=== PATIENT | male | born 1940 | race Caucasian/White ===

== ENCOUNTER 2020-04-24 08:46 | Outpatient (REF) | payer MEDICARE, SELFPAY ==
[2020-04-24 09:52] LABS: MANUAL DIFF FLAG NO
[2020-04-24 10:24] LABS: Basophils Percent Auto 0.5 % (0-2); Eosinophils Absolute Auto 0.3 X10*3/uL (0.0-0.4); Eosinophils Percent Auto 4.4 % (0-4); Hematocrit 46.6 % (42-52); Hemoglobin 15.6 g/dl (14.0-18.0); Imm Gran Abs Auto 0.04 X10*3/uL (0.00-0.03); Imm Gran Pct Auto 0.5 % (0.0-0.4); Lymphocytes Absolute Auto 2.3 X10*3/uL (1.2-4.9); Lymphocytes Percent Auto 30.5 % (20-40); Mean Corpuscular HGB Conc 33.5 g/dl (31.0-36.0); Mean Corpuscular Hemoglobin 30.5 pg (27.0-33.0); Mean Corpuscular Volume 91.2 fL (80-98); Mean Platelet Volume 9.3 fL (9.4-12.4); Monocytes Absolute Auto 0.7 X10*3/uL (0.1-1.2); Monocytes Percent Auto 8.7 % (2-11); Neutrophils Absolute Auto 4.2 X10*3/uL (2.0-8.3); Neutrophils Percent Auto 55.4 % (45-73); Platelet Count 444 X10*3/uL (160-400); Red Blood Count 5.11 X10*6/uL (4.60-5.80); Red Cell Distribution Width 13.3 % (11.0-16.0); White Blood Count 7.6 X10*3/uL (4.8-10.8)
[2020-04-24 10:27] LABS: Alanine Aminotransferase 13 U/L (0-40); Albumin Level 4.4 g/dL (3.5-5.0); Alkaline Phosphatase 57 U/L (39-117); Anion Gap 11 (12-20); Aspartate Amino Transferase 15 U/L (5-37); Bilirubin Total 0.6 mg/dL (0.0-1.0); Blood Urea Nitrogen 15 mg/dL (9-16); Calcium 8.8 mg/dL (8.4-10.2); Carbon Dioxide 31 mmol/L (22-29); Chloride 103 mmol/L (96-108); Estimated Glomerular Filt Rate > 60; Glucose Random 112 mg/dL (60-115); Potassium 5.1 mmol/l (3.3-5.1); Sodium 140 mmol/L (135-145); Total Protein 7.3 g/dL (6.5-8.0)
[2020-04-24 10:29] LABS: Glucose Urine UA NEG (NEG); Leukocyte Esterase Urine NEG (NEG); Nitrite Urine NEG (NEG); PH 5.5 (5.0-8.0); Specific Gravity - Urine >= 1.030 (1.005-1.025); Urine Blood NEG (NEG); Urine Ketones NEG (NEG); Urine Protein NEG (NEG-TRACE)
[2020-04-24 10:32] LABS: Estimated Average Glucose 123 mg/dL; Hemoglobin A1c % 5.9 %
[2020-04-24 10:34] LABS: Appearance Urine CLEAR; Color Urine YELLOW
[2020-04-24 10:50] LABS: Prostate Specific Antigen 7.43 ng/mL (<0.05-4.0)
[2020-04-24 10:51] LABS: Creatinine Urine 143.37 mg/dL; Microalbum/Creatinine Ratio Ur 4.8 ug/mg cr
== END 2020-04-24 08:47 | disposition home or self-care (01) ==
LOC: HO.LAB 08:46
PROVIDERS: PCP Internal Medicine; Visit Provider Internal Medicine
DX: R73.09 Other abnormal glucose (principal); I10 Essential (primary) hypertension; D64.9 Anemia, unspecified; Z87.448 Personal history of other diseases of urinary system; R97.20 Elevated prostate specific antigen [PSA]
CPT/HCPCS: 36415; 80053; 81003; 82043; 83036; 84153; 85025

== ENCOUNTER 2020-10-29 10:30 | Outpatient (REF) | payer MEDICARE, SELFPAY ==
[2020-10-29 11:25] LABS: Estimated Average Glucose 117 mg/dL; Hemoglobin A1c % 5.7 %
[2020-10-29 11:53] LABS: Alanine Aminotransferase 9 U/L (0-40); Albumin Level 4.3 g/dL (3.5-5.0); Alkaline Phosphatase 54 U/L (39-117); Aspartate Amino Transferase 18 U/L (5-37); Bilirubin Direct 0.3 mg/dL (0.0-0.5); Bilirubin Total 0.7 mg/dL (0.0-1.0); Cholesterol 123 mg/dL; Glucose Fasting 115 mg/dL (60-99); HDL Cholesterol 38 mg/dL; LDL Cholesterol Calculated 68 mg/dl; Total Protein 7.3 g/dL (6.5-8.0); Triglycerides 85 mg/dL
[2020-10-29 13:41] LABS: Reflex LDLD? No
== END 2020-10-29 10:31 | disposition home or self-care (01) ==
LOC: HO.LNP 10:30
PROVIDERS: PCP Internal Medicine; Visit Provider Internal Medicine
DX: R73.03 Prediabetes (principal); I70.0 Atherosclerosis of aorta
CPT/HCPCS: 80061; 80076; 82947; 83036

== ENCOUNTER 2021-02-18 09:54 | Outpatient (REF) | payer MEDICARE, SELFPAY | END 2021-02-18 09:55 | disposition home or self-care (01) | LOC: HO.LAB 09:54 | PROVIDERS: PCP Internal Medicine; Visit Provider Internal Medicine | DX: Z20.822 Contact with and (suspected) exposure to COVID-19 (principal) | CPT/HCPCS: C9803; U0003; U0005 ==

== ENCOUNTER 2021-04-29 10:23 | Outpatient (REF) | payer MEDICARE, SELFPAY ==
[2021-04-29 10:26] LABS: MANUAL DIFF FLAG NO
[2021-04-29 10:38] LABS: Basophils Absolute Auto 0.1 X10*3/uL (0.0-0.2); Basophils Percent Auto 0.6 % (0-2); Eosinophils Absolute Auto 0.4 X10*3/uL (0.0-0.4); Eosinophils Percent Auto 4.5 % (0-4); Hematocrit 45.8 % (42-52); Hemoglobin 15.3 g/dl (14.0-18.0); Imm Gran Abs Auto 0.03 X10*3/uL (0.00-0.03); Imm Gran Pct Auto 0.3 % (0.0-0.4); Lymphocytes Absolute Auto 2.7 X10*3/uL (1.2-4.9); Lymphocytes Percent Auto 30.9 % (20-40); Mean Corpuscular HGB Conc 33.4 g/dl (31.0-36.0); Mean Corpuscular Volume 92.7 fL (80-98); Mean Platelet Volume 9.4 fL (9.4-12.4); Monocytes Absolute Auto 0.8 X10*3/uL (0.1-1.2); Monocytes Percent Auto 9.2 % (2-11); Neutrophils Absolute Auto 4.8 X10*3/uL (2.0-8.3); Neutrophils Percent Auto 54.5 % (45-73); Platelet Count 431 X10*3/uL (160-400); Red Blood Count 4.94 X10*6/uL (4.60-5.80); Red Cell Distribution Width 13.5 % (11.0-16.0); White Blood Count 8.9 X10*3/uL (4.8-10.8)
[2021-04-29 10:48] LABS: Alanine Aminotransferase 13 U/L (0-40); Albumin Level 4.3 g/dL (3.5-5.0); Alkaline Phosphatase 53 U/L (39-117); Anion Gap 11 (12-20); Aspartate Amino Transferase 15 U/L (5-37); Bilirubin Total 0.5 mg/dL (0.0-1.0); Blood Urea Nitrogen 17 mg/dL (9-16); Calcium 9.2 mg/dL (8.4-10.2); Carbon Dioxide 29 mmol/L (22-29); Chloride 104 mmol/L (96-108); Cholesterol 116 mg/dL; Estimated Glomerular Filt Rate > 60; Glucose Fasting 119 mg/dL (60-99); HDL Cholesterol 34 mg/dL; LDL Cholesterol Calculated 60 mg/dl; Potassium 4.6 mmol/L (3.3-5.1); Sodium 139 mmol/L (135-145); Total Protein 7.2 g/dL (6.5-8.0); Triglycerides 113 mg/dL
[2021-04-29 10:52] LABS: Estimated Average Glucose 134 mg/dL; Hemoglobin A1c % 6.3 %
[2021-04-29 11:00] LABS: Appearance Urine CLEAR; Color Urine YELLOW; Glucose Urine UA NEG (NEG); Leukocyte Esterase Urine NEG (NEG); Nitrite Urine NEG (NEG); Specific Gravity - Urine 1.025 (1.005-1.025); Urine Blood NEG (NEG); Urine Ketones NEG (NEG); Urine Protein NEG (NEG-TRACE)
[2021-04-29 11:11] LABS: PSA,Total (Free>4and<10) 8.07 ng/mL (0.00-4.00)
[2021-04-29 11:25] LABS: Creatinine Urine 110.21 mg/dL; Microalbum/Creatinine Ratio Ur 5.4 ug/mg cr
[2021-04-29 12:04] LABS: Reflex LDLD? No
[2021-04-30 10:26] LABS: Free Prostate Spec Ag 1.5 ng/mL; Percent Free Prostate Spec Ag 24 % (calc) (>25); Prostate Specific Ag Total 6.3 ng/mL (< OR = 4.0)
== END 2021-04-29 10:24 | disposition home or self-care (01) ==
LOC: HO.LNP 10:23
PROVIDERS: Visit Provider Internal Medicine
DX: Z00.00 Encounter for general adult medical examination without abnormal findings (principal); I10 Essential (primary) hypertension; D64.9 Anemia, unspecified; R73.9 Hyperglycemia, unspecified; R97.20 Elevated prostate specific antigen [PSA]
CPT/HCPCS: 80053; 80061; 81003; 82043; 83036; 84153; 84154; 85025

== ENCOUNTER 2021-10-31 11:14 | Outpatient (REF) | payer MEDICARE, SELFPAY ==
[2021-10-31 12:30] LABS: Estimated Average Glucose 137 mg/dL; Hemoglobin A1c % 6.4 %
[2021-10-31 12:31] LABS: Alanine Aminotransferase 12 U/L (0-40); Albumin Level 4.2 g/dL (3.5-5.0); Alkaline Phosphatase 62 U/L (39-117); Aspartate Amino Transferase 14 U/L (5-37); Bilirubin Direct 0.3 mg/dL (0.0-0.5); Bilirubin Total 0.6 mg/dL (0.0-1.0); Cholesterol 119 mg/dL; Glucose Fasting 133 mg/dL (60-99); HDL Cholesterol 34 mg/dL; LDL Cholesterol Calculated 68 mg/dl; Total Protein 7.4 g/dL (6.5-8.0); Triglycerides 86 mg/dL
[2021-10-31 16:09] LABS: Reflex LDLD? No
== END 2021-10-31 11:15 | disposition home or self-care (01) ==
LOC: HO.LNP 11:14
PROVIDERS: Visit Provider Internal Medicine
DX: R73.03 Prediabetes (principal); I70.0 Atherosclerosis of aorta
CPT/HCPCS: 80061; 80076; 82947; 83036

== ENCOUNTER 2022-05-02 10:42 | Outpatient (REF) | payer MEDICARE, SELFPAY ==
[2022-05-02 10:47] LABS: MANUAL DIFF FLAG NO
[2022-05-02 11:49] LABS: Basophils Absolute Auto 0.1 X10*3/uL (0.0-0.2); Basophils Percent Auto 0.8 % (0-2); Eosinophils Absolute Auto 0.3 X10*3/uL (0.0-0.4); Eosinophils Percent Auto 3.3 % (0-4); Hematocrit 46.6 % (42.0-52.0); Hemoglobin 15.2 g/dl (14.0-18.0); Imm Gran Abs Auto 0.05 X10*3/uL (0.00-0.03); Imm Gran Pct Auto 0.6 % (0.0-0.4); Lymphocytes Absolute Auto 2.7 X10*3/uL (1.2-4.9); Mean Corpuscular HGB Conc 32.6 g/dl (31.0-36.0); Mean Corpuscular Hemoglobin 29.8 pg (27.0-33.0); Mean Corpuscular Volume 91.4 fL (80.0-98.0); Mean Platelet Volume 9.2 fL (9.4-12.4); Monocytes Absolute Auto 0.8 X10*3/uL (0.1-1.2); Monocytes Percent Auto 9.4 % (2-11); Neutrophils Absolute Auto 4.8 x10*3/uL (2.0-8.3); Neutrophils Percent Auto 54.9 % (45-73); Platelet Count 438 X10*3/uL (160-400); Red Cell Distribution Width 13.5 % (11.0-16.0); White Blood Count 8.8 X10*3/uL (4.8-10.8)
[2022-05-02 11:55] LABS: Appearance Urine Clear; Color Urine Yellow; Glucose Urine UA Negative (Negative); Leukocyte Esterase Urine Negative (Negative); Nitrite Urine Negative (Negative); PH 5.5 (5.0-9.0); Specific Gravity - Urine 1.015 (1.005-1.025); Urine Blood Negative (Negative); Urine Ketones Negative (Negative); Urine Protein Negative (Neg-Trace)
[2022-05-02 12:01] LABS: Bacteria Urine None Seen (None Seen); Hyaline Casts Urine 0-2 /LPF (0-2); RBC Urine 0-2 /HPF (0-2); Squamous Epithelial Cell Urine 0-2 /HPF (0-2); WBC Urine 0-5 /HPF (0-5)
[2022-05-02 12:08] LABS: Estimated Average Glucose 140 mg/dL; Hemoglobin A1c % 6.5 %
[2022-05-02 12:14] LABS: Alanine Aminotransferase 12 U/L (0-40); Albumin Level 4.4 g/dL (3.5-5.0); Alkaline Phosphatase 54 U/L (39-117); Anion Gap 15 (12-20); Aspartate Amino Transferase 16 U/L (5-37); Bilirubin Total 0.6 mg/dL (0.0-1.0); Blood Urea Nitrogen 18 mg/dL (9-16); Calcium 9.1 mg/dL (8.4-10.2); Carbon Dioxide 26 mmol/L (22-29); Chloride 102 mmol/L (96-108); Estimated Glomerular Filt Rate > 60; Glucose Fasting 122 mg/dL (60-99); Potassium 4.6 mmol/L (3.3-5.1); Sodium 138 mmol/L (135-145); Total Protein 7.4 g/dL (6.5-8.0)
[2022-05-02 12:21] LABS: PSA,Total (Free>4and<10) 10.76 ng/mL (0.00-4.00)
[2022-05-02 12:39] LABS: Creatinine Urine 107.61 mg/dL; Microalbum/Creatinine Ratio Ur 8.3 ug/mg cr
== END 2022-05-02 10:43 | disposition home or self-care (01) ==
LOC: HO.LNP 10:42
PROVIDERS: Visit Provider Internal Medicine
DX: Z00.00 Encounter for general adult medical examination without abnormal findings (principal); Z12.5 Encounter for screening for malignant neoplasm of prostate; I10 Essential (primary) hypertension; D64.9 Anemia, unspecified; R73.03 Prediabetes; R97.20 Elevated prostate specific antigen [PSA]
CPT/HCPCS: 80053; 81001; 82043; 83036; 84153; 85025

== ENCOUNTER 2022-08-08 10:51 | Outpatient (REF) | payer MEDICARE, SELFPAY ==
[2022-08-08 12:16] LABS: PSA,Total (Free>4and<10) 17.01 ng/mL (0.00-4.00)
== END 2022-08-08 10:52 | disposition home or self-care (01) ==
LOC: HO.LNP 10:51
PROVIDERS: Visit Provider Internal Medicine
DX: R97.20 Elevated prostate specific antigen [PSA] (principal); Z12.5 Encounter for screening for malignant neoplasm of prostate
CPT/HCPCS: 84153

== ENCOUNTER 2023-05-05 10:53 | Outpatient (REF) | payer MEDICARE, SELFPAY ==
[2023-05-05 11:10] LABS: MANUAL DIFF FLAG NO
[2023-05-05 11:39] LABS: Basophils Absolute Auto 0.1 X10*3/uL (0.0-0.2); Basophils Percent Auto 0.9 % (0-2); Eosinophils Absolute Auto 0.3 X10*3/uL (0.0-0.4); Eosinophils Percent Auto 4.2 % (0-4); Hematocrit 45.7 % (42.0-52.0); Hemoglobin 15.3 g/dl (14.0-18.0); Imm Gran Abs Auto 0.04 X10*3/uL (0.00-0.03); Imm Gran Pct Auto 0.5 % (0.0-0.4); Lymphocytes Absolute Auto 2.4 X10*3/uL (1.2-4.9); Lymphocytes Percent Auto 30.3 % (20-40); Mean Corpuscular HGB Conc 33.5 g/dl (31.0-36.0); Mean Corpuscular Hemoglobin 31.1 pg (27.0-33.0); Mean Corpuscular Volume 92.9 fL (80.0-98.0); Mean Platelet Volume 9.6 fL (9.4-12.4); Monocytes Absolute Auto 0.7 X10*3/uL (0.1-1.2); Monocytes Percent Auto 9.2 % (2-11); Neutrophils Absolute Auto 4.4 x10*3/uL (2.0-8.3); Neutrophils Percent Auto 54.9 % (45-73); Platelet Count 447 X10*3/uL (160-400); Red Blood Count 4.92 X10*6/uL (4.60-5.80); Red Cell Distribution Width 13.7 % (11.0-16.0); White Blood Count 7.9 X10*3/uL (4.8-10.8)
[2023-05-05 11:47] LABS: Appearance Urine Clear; Color Urine Yellow; Glucose Urine UA Negative (Negative); Leukocyte Esterase Urine Small (1+) (Negative); Nitrite Urine Negative (Negative); PH 5.5 (5.0-9.0); UMIC TRIGGER UACC YES; Urine Blood Negative (Negative); Urine Ketones Negative (Negative); Urine Protein Negative (Neg-Trace)
[2023-05-05 12:02] LABS: Alanine Aminotransferase 13 U/L (0-40); Albumin Level 4.2 g/dL (3.5-5.0); Alkaline Phosphatase 50 U/L (39-117); Anion Gap 12 (12-20); Aspartate Amino Transferase 16 U/L (5-37); Bilirubin Total 0.4 mg/dL (0.0-1.0); Blood Urea Nitrogen 18 mg/dL (9-16); Calcium 9.7 mg/dL (8.4-10.2); Carbon Dioxide 27 mmol/L (22-29); Chloride 105 mmol/L (96-108); Cholesterol 97 mg/dL (<200); Estimated Glomerular Filt Rate > 60; Glucose Fasting 159 mg/dL (60-99); HDL Cholesterol 34 mg/dL (>40); LDL Cholesterol Calculated 45 mg/dL (<100); Potassium 4.3 mmol/L (3.3-5.1); Sodium 140 mmol/L (135-145); Total Protein 7.4 g/dL (6.5-8.0); Triglycerides 92 mg/dL (<150)
[2023-05-05 12:06] LABS: Bacteria Urine None Seen (None Seen); Hyaline Casts Urine 0-2 /LPF (0-2); RBC Urine 0-2 /HPF (0-2); Squamous Epithelial Cell Urine 0-2 /HPF (0-2); UACC Culture Trigger YES; WBC Urine 0-5 /HPF (0-5)
[2023-05-05 12:22] LABS: Prostate Specific Antigen 6.48 ng/mL (<0.05-4.0)
== END 2023-05-05 10:54 | disposition home or self-care (01) ==
LOC: HO.LNP 10:53
PROVIDERS: Visit Provider Internal Medicine
DX: Z00.00 Encounter for general adult medical examination without abnormal findings (principal); I10 Essential (primary) hypertension; D64.9 Anemia, unspecified; R97.20 Elevated prostate specific antigen [PSA]; R82.90 Unspecified abnormal findings in urine; Z12.5 Encounter for screening for malignant neoplasm of prostate
CPT/HCPCS: 80053; 80061; 81001; 84153; 85025; 87086

== ENCOUNTER 2023-11-05 10:44 | Outpatient (REF) | payer MEDICARE, SELFPAY ==
[2023-11-05 11:09] LABS: Estimated Average Glucose 154 mg/dL
[2023-11-05 12:02] LABS: Alanine Aminotransferase 14 U/L (0-40); Albumin Level 4.3 g/dL (3.5-5.0); Alkaline Phosphatase 45 U/L (39-117); Aspartate Amino Transferase 18 U/L (5-37); Bilirubin Direct 0.3 mg/dL (0.0-0.5); Bilirubin Total 0.9 mg/dL (0.0-1.0); Cholesterol 108 mg/dL (<200); Glucose Fasting 134 mg/dL (60-99); HDL Cholesterol 39 mg/dL (>40); LDL Cholesterol Calculated 51 mg/dL (<100); Total Protein 7.4 g/dL (6.5-8.0); Triglycerides 94 mg/dL (<150)
[2023-11-05 12:20] LABS: Reflex LDLD? No
== END 2023-11-05 10:45 | disposition home or self-care (01) ==
LOC: HO.LNP 10:44
PROVIDERS: Visit Provider Internal Medicine
DX: R73.03 Prediabetes (principal); I70.0 Atherosclerosis of aorta
CPT/HCPCS: 80061; 80076; 82947; 83036

== ENCOUNTER 2024-05-12 11:33 | Outpatient (REF) | payer MEDICARE, SELFPAY ==
[2024-05-12 11:37] LABS: MANUAL DIFF FLAG NO
[2024-05-12 12:11] LABS: Basophils Absolute Auto 0.1 X10*3/uL (0.0-0.2); Basophils Percent Auto 0.9 % (0-2); Eosinophils Absolute Auto 0.3 X10*3/uL (0.0-0.4); Eosinophils Percent Auto 4.2 % (0-4); Hematocrit 44.2 % (42.0-52.0); Hemoglobin 14.7 g/dl (14.0-18.0); Imm Gran Abs Auto 0.04 X10*3/uL (0.00-0.03); Imm Gran Pct Auto 0.5 % (0.0-0.4); Lymphocytes Absolute Auto 2.2 X10*3/uL (1.2-4.9); Lymphocytes Percent Auto 27.2 % (20-40); Mean Corpuscular HGB Conc 33.3 g/dl (31.0-36.0); Mean Corpuscular Hemoglobin 30.9 pg (27.0-33.0); Mean Corpuscular Volume 93.1 fL (80.0-98.0); Mean Platelet Volume 9.1 fL (9.4-12.4); Monocytes Absolute Auto 0.7 X10*3/uL (0.1-1.2); Monocytes Percent Auto 8.8 % (2-11); Neutrophils Absolute Auto 4.8 x10*3/uL (2.0-8.3); Neutrophils Percent Auto 58.4 % (45-73); Platelet Count 482 X10*3/uL (160-400); Red Blood Count 4.75 X10*6/uL (4.60-5.80); Red Cell Distribution Width 13.5 % (11.0-16.0); White Blood Count 8.2 X10*3/uL (4.8-10.8)
[2024-05-12 12:12] LABS: Appearance Urine Clear; Color Urine Yellow; Glucose Urine UA Negative (Negative); Leukocyte Esterase Urine Trace (Negative); Nitrite Urine Negative (Negative); PH 5.5 (5.0-9.0); Specific Gravity - Urine 1.015 (1.005-1.025); UMIC TRIGGER UACC YES; Urine Blood Negative (Negative); Urine Ketones Negative (Negative); Urine Protein Negative (Neg-Trace)
[2024-05-12 12:17] LABS: Bacteria Urine None Seen (None Seen); Hyaline Casts Urine 0-2 /LPF (0-2); RBC Urine 0-2 /HPF (0-2); Squamous Epithelial Cell Urine 0-2 /HPF (0-2); WBC Urine 0-5 /HPF (0-5)
[2024-05-12 12:23] LABS: Estimated Average Glucose 151 mg/dL; Hemoglobin A1C 204.3044 umol/L; Hemoglobin A1c % 6.9 % (<6.0); Total Hemoglobin (HGBA1C) 3928.0183 umol/L
[2024-05-12 12:28] LABS: Alanine Aminotransferase 15 U/L (0-40); Albumin Level 4.1 g/dL (3.5-5.0); Alkaline Phosphatase 46 U/L (39-117); Anion Gap 10 (12-20); Aspartate Amino Transferase 20 U/L (5-37); Bilirubin Total 0.6 mg/dL (0.0-1.0); Blood Urea Nitrogen 19 mg/dL (9-16); Calcium 9.2 mg/dL (8.4-10.2); Carbon Dioxide 27 mmol/L (22-29); Chloride 106 mmol/L (96-108); Cholesterol 116 mg/dL (<200); Estimated Glomerular Filt Rate > 60; Glucose Fasting 165 mg/dL (60-99); HDL Cholesterol 42 mg/dL (>40); LDL Cholesterol Calculated 60 mg/dL (<100); Potassium 4.3 mmol/L (3.3-5.1); Sodium 139 mmol/L (135-145); Total Protein 7.1 g/dL (6.5-8.0); Triglycerides 71 mg/dL (<150)
[2024-05-12 12:44] LABS: Creatinine Urine 84.07 mg/dL
[2024-05-13 12:58] LABS: Free Prostate Spec Ag 1.6 ng/mL; Percent Free Prostate Spec Ag 32 % (calc) (>25)
== END 2024-05-12 11:34 | disposition home or self-care (01) ==
LOC: HO.LNP 11:33
PROVIDERS: Visit Provider Internal Medicine
DX: Z00.00 Encounter for general adult medical examination without abnormal findings (principal); I10 Essential (primary) hypertension; D64.9 Anemia, unspecified; R97.20 Elevated prostate specific antigen [PSA]; E11.9 Type 2 diabetes mellitus without complications; Z12.5 Encounter for screening for malignant neoplasm of prostate
CPT/HCPCS: 80053; 80061; 81001; 82043; 82570; 83036; 84153; 84154; 85025

== ENCOUNTER 2024-11-14 11:52 | Outpatient (REF) | payer MEDICARE, SELFPAY ==
--- OUTSIDE RECORDS SUMMARY | 2024-11-14 12:33 | XMS_ITS ---
Author Organization Mauricio Zazueta MD Address [address] [place] [id number] Care Team Providers Care [facility] Director Name Role Phone Mauricio Zazueta Primary Care Provider Allergies No Known Allergies Results Component Value Reference Range Notes Occult Blood, Stool, Guaiac Reviewed date:05/19/2024 01:54:49 PM Interpretation:Negative Performing Lab: Notes/Report: Negative Occult Blood, Stool, Guaiac Neg REASON FOR VISIT annual visit Medications Medication SIG (Take, Route, Frequency, Duration) Notes Start Date End Date Status Diflucan 150 MG 1 tablet Orally lucy y for 7 days 02/10/2023 Not-Taking Ketoconazole 2 % 1 application Externally Once a day for 30 days 02/10/2023 Active Flonase Allergy Relief 50 MCG/ACT 1 spray in each nostril Nasally Once a day for 30 day(s) Not-Taking Atorvastatin Calcium 20 MG TAKE 1 TABLET BY MOUTH EVERY DAY Active Lisinopril-hydroCHLOROthi azide 20-12.5 MG TAKE 1 TABLET BY MOUTH EVERY DAY FOR 30 DAYS Active Flonase Allergy Relief 50 MCG/ACT 1 spray in each nostril Nasally Once a day Not-Taking LORazepam 0.5 MG 1 tablet at bedtime as needed Orally Once a day or twice a day for 30 days 08/14/2022 Not-Taking Albuterol Sulfate HFA 108 (90 Base) MCG/ACT INHALE 1 PUFF INTO THE LUNGS EVERY 4 HOURS NEEDED Active Social History Tobacco Use: Social History Observation Description Date Details (start date - stop date) Former Smoker NA - NA Tobacco Use/Smoking Question Answer Notes Patient is a former smoker How long has it been since y ou last smoked? > 10 years Additional Findings: Tobacco Non-User Fo rmer smoker, currently using no form of tobacco Alcohol Screen Question Answer Notes Did you have a drink containing alcohol in the p ast year? 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 ; Encounter for general adult medical examination without abnormal findings Z00.00 ; Benign essential hypertension I10 ; Elevated PSA R97.20 ; Type 2 diabetes mellitus treated without insulin E11.9 ; Mild intermittent asthma without complication J45.20 ; Atherosclerosis of abdominal aorta I70.0 ; Colon cancer screening Z12.11 and Depression screening Z13.31 Assessments Encounter Date Diagnosis (ICD Code) Assessment Notes Treatment Notes Treatment Clinical Notes Section Notes 05/19/2024 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 need notes/ RECORDS REQUESTED FROM [facility] 05/19/2024 Encounter for general adult medical examination without abnormal findings (ICD-10 - Z00.00) Labs reviewed and discussed with patient 05/19/2024 Benign essential hypertension (ICD-10 - I10) stable, will continue current regiment 05/19/2024 Elevated PSA (ICD-10 - R97.20) is stable had been up to 17 is followed by [facility] 05/19/2024 Type 2 diabetes mellitus treated without insulin (ICD-10 - E11.9) stable, will continue to monitor, no need for medication at this time 05/19/2024 Mild intermittent asthma without complication (ICD-10 - J45.20) stable, will continue current regiment 05/19/2024 Atherosclerosis of abdominal aorta (ICD-10 - I70.0) stable, will continue current regiment 05/19/2024 Colon cancer screening (ICD-10 - Z12.11) guaiac negative 05/19/2024 Depression screening (ICD-10 - Z13.31) negative screen Plan Of Treatment Medication Medication Name Sig Start Date Stop Date Notes Atorvastatin Calcium 20 MG TAKE 1 TABLET BY MOUTH EVERY DAY Lisinopril-hydroCHLOROthiazi de 20-12.5 MG TAKE 1 TABLET BY MOUTH EVERY DAY FOR 30 DAYS Albuterol Sulfate HFA 108 (9 0 Base) MCG/ACT INHALE 1 PUFF INTO THE LUNGS EVERY 4 HOURS NEEDED Treatment Notes Assessment Notes Cancer of lip had surgery last wee k at [facility]. need notes/ RECORDS REQUESTED [facility] [place] [facility] Encounter for general adult medical examination without abnormal findings Labs reviewed and discussed with patient Benign essential hypertension stable, wi ll continue current regiment Elevated PSA is stable had been u p to 17 is followed by [facility] Type 2 diabetes mellitus paulette ated without insulin stable, will continue to monitor, no need for medication at this time Mild intermittent asthma without complic ation stable, will continue current regiment Atherosclerosis of abdominal aorta stabl e, will continue current regiment Colon cancer screening guaiac negative Depression screening negative screen Next Appt Details Follow Up: 6 Months, Reason: Provider Name:Mauricio shannon, 11/21/2024 09:00:00 AM, [address] [place] [address], [address], [phone], Provider Name:Mauricio shannon, 05/15/2025 08:00:00 AM, [address] [place] [address], [address] [place] [address], [phone], Provider Name:Mauricio shannon, 05/22/2025 10:30:00 AM, [address] [place] [address], [address] [place] [address], [phone], Progress Notes * Joe REECE ADOB:1939 (84 yo M)Acc No.[id number]:05/19/2024 Progress Notes Patient:?Joe Reece Provider:?Mauricio Zazueta MD :1940???Age:84 Y???Sex:Male Frantz e:05/19/2024 Address:[address] [place], [place] [address], [phone] Subjective: * Chief Complaints: * ???Annual visit * HPI: ???Depression Screening:?PHQ-9?Little interest or pleasure in doing things?Not at all,?Feeling down, depressed, or hopeless?Not at all,?Trouble falling or staying asleep, or sleeping too much?Not at all,?Feeling tired or having little energy?Not at all,?Poor appetite or overeating?Not at all,?Feeling bad about yourself or that you are a failure, or have let yourself or your family down?Not at all,?Trouble concentrating on things, such as reading the newspaper or watching television?Not at all,?Moving or speaking so slowly that other people could have noticed; or the opposite, being so fidgety or restless that you have been moving around a lot more than usual?Not at all,?Thoughts that you would be better off or of hurting yourself in some way?Not at all,?Total Score?0.?Interpretation and Intervention?Depression Screening Findings?Negative,?Follow-Up for Depression?: review of PHQ-9 found negative result, no follow-up needed.?Communication Needs:?Communication Needs?Does the patient have a hearing impairment?Yes,?If yes, what is the hearing impairment??Hard of hearing, Hearing Aids,?Does the patient have a vision impairment??Yes,?If yes, what is the vision impairment??Glasses,?Does the patient have a cognition impairment??No.?Fall Risk:?History?Have you had any falls with injury in the past year??No,?Have you had two or more falls in the past year??No.?SDOH Questions:?SDOH Questions?In the past year have you been worried about losing housing??No,?In the past year have you or any family members you live with been unable to get any of the following when it was really needed? Check all that apply:?None.?Symptom(s):? patient is a 84 yo male here for annual visit with review of recent labs and follow up of chronic issues, had surgery on lip for cancer last week. * ROS:?General/Constitutional:?Patient denies?fatigue , headache.?Change in appetite?denies.?Chills?denies.?Fever?denies.?Ophthalmologic:?Blurred vision?denies.?Discharge?denies.?Pain?denies.?ENT:?Decreased hearing?denies.?Sore throat?denies.?Swollen glands?denies.?Endocrine:?Cold intolerance?denies.?Excessive thirst?denies.?Heat intolerance?denies.?Weight loss?denies.?Respiratory:?Cough?denies.?Shortness of breath at rest?denies.?Shortness of breath with exertion?denies.?Wheezing?denies.?Cardiovascular:?Chest pain at rest?denies.?Chest pain with exertion?denies.?Irregular heartbeat?denies.?Shortness of breath?denies.?Gastrointestinal:?Abdominal pain?denies.?Change in bowel habits?denies.?Diarrhea?denies.?Nausea?denies.?Rectal bleeding?denies.?Vomiting?denies .?Genitourinary:?Blood in urine?denies.?Difficulty urinating?denies.?Frequent urination?denies.?Musculoskeletal:?Patient denies?muscle aches.?Painful joints?denies.?Weakness?denies.?Peripheral Vascular:?Patient denies?red and blue toes.?Skin:?Dry skin?denies.?Itching?denies.?Denies?Mole(s),? changes in moles, new moles or any lesions of concern.?Denies?Photosensitivity.?Rash?denies.?Neurologic:?Dizziness?denies.?Fainting?denies.?Headache?denies.? * Medical History:? * Surgical History:? * Hospitalization/Major Diagno stic Procedure:? * Family History:?Father: dece ased 63 yrs.?Mother: 93 yrs.?1 brother(s) , 1 sister(s) . 2 son(s) , 1 daughter(s) . .? Father-Cardiac Mother-Natural Causes, Denies mental health/substance abuse family history, No pertinent family medical history, Denies mental health/substance abuse family history. * Social History:?Tobacco Use:?Tobacco Use/Smoking?Patient is a?former smoker,?How long has it been since you last smoked??> 10 years,?Additional Findings: Tobacco Non-User?Former smoker, currently using no form of tobacco.?Drugs/Alcohol:?Alcohol Screen?Did you have a drink containing alcohol in the past year??No,?Points?0,?Interpretation?Negative.?Miscellaneous:?Caffeine: yes, frequency:, 1-2 cups per day. Children: yes. no Community involvements. Exercise: yes, walks 9n his yard. Home smoke detector use: yes. Housing: owning. Living with: spouse. Marital status: . Occupation: Retired. Pets: none. no Travel outside of the [place]. * Medications:?TakingAlbuterol Sulfate HFA 108 (90 Base) MCG/ACT Aerosol Solution INHALE 1 PUFF INTO THE LUNGS EVERY 4 HOURS NEEDED Lisinopril- hydroCHLOROthiazide 20-12.5 MG Tablet TAKE 1 TABLET BY MOUTH EVERY DAY FOR 30 DAYS Atorvastatin Calcium 20 MG Tablet TAKE 1 TABLET BY MOUTH EVERY DAY Ketoconazole 2 % Cream 1 application Externally Once a dayTaking Albuterol Sulfate HFA 108 (90 Base) MCG/ACT Aerosol Solution INHALE 1 PUFF INTO THE LUNGS EVERY 4 HOURS NEEDED Taking Lisinopril-hydroCHLOROthiazide 20-12.5 MG Tablet TAKE 1 TABLET BY MOUTH EVERY DAY FOR 30 DAYS Taking Atorvastatin Calcium 20 MG Tablet TAKE 1 TABLET BY MOUTH EVERY DAY Taking Ketoconazole 2 % Cream 1 application Externally Once a dayNot-Taking/PRNDiflucan 150 MG Tablet 1 tablet Orally dailyFlonase Allergy Relief 50 MCG/ACT Suspension 1 spray in each nostril Nasally Once a dayLORazepam 0.5 MG Tablet 1 tablet at bedtime as needed Orally Once a day or twice a dayFlonase Allergy Relief 50 MCG/ACT Suspension 1 spray in each nostril Nasally Once a dayMedication List reviewed and reconciled with the patientNot-Taking/PRN Diflucan 150 MG Tablet 1 tablet Orally dailyNot-Taking/PRN Flonase Allergy Relief 50 MCG/ACT Suspension 1 spray in each nostril Nasally Once a dayNot-Taking/PRN LORazepam 0.5 MG Tablet 1 tablet at bedtime as needed Orally Once a day or twice a dayNot-Taking/PRN Flonase Allergy Relief 50 MCG/ACT Suspension 1 spray in each nostril Nasally Once a dayMedication List reviewed and reconciled with the patient * Allergies:?N.K.D.A.yes[Aller gies Verified] Objective: * Vitals:?Ht: 63.5, Wt:179, BM I:31.21, BP:152/60, Repeat BP:140/58. * ???Past Orders: ???Lab:UA ClnCatch+Micro w/r flx Cult (Order Date - 05/12/2024) (Collection Date - 05/12/2024) ? Value Reference Range ?Color Urine Yellow - ?Appearance Urine Clear - ?PH 5.5 5.0-9.0 - ?Glucose Urine UA Negative Neg ative - mg/dL ?Urine Blood Negative Negative - ?Specific [place] - Urine 1.015 1.005-1.025 - ?Urine Protein Negative Neg-Tr irene - mg/dL ?Urine Ketones Negative Negati ve - mg/dL ?Nitrite Urine Negative Negati ve - ?Leukocyte Esterase Urine Trace A Negative - ?RBC Urine 0-2 0-2 - /HPF ?WBC Urine 0-5 0-5 - /HPF ?Squamous Epithelial Cell Urine 0-2 0-2 - /HPF ?Bacteria Urine None Seen None Seen - ?Hyaline Casts Urine 0-2 0-2 - /LPF ???Lab:Complete Blood Count Auto Diff (Order Date - 05/12/2024) (Collection Date - 05/12/2024) ? Value Reference Range ?White Blood Count 8.2 4. 8-10.8 - X10*3/uL ?Red Blood Count 4.75 4.60 -5.80 - X10*6/uL ?Hemoglobin 14.7 14.0-18.0 - g/dl ?Hematocrit 44.2 42.0-52.0 - % ?Mean Corpuscular Volume 93.1 80.0-98.0 - fL ?Mean Corpuscular Hemoglobin 30.9 27.0-33.0 - pg ?Mean Corpuscular HGB Conc 33.3 31.0-36.0 - g/dl ?Red Cell Distribution Width 13.5 11.0-16.0 - % ?Platelet Count 482 H 160-4 00 - X10*3/uL ?Mean Platelet Volume 9.1 L 9.4-12.4 - fL ?Neutrophils Percent Auto 58.4 45-73 - % ?Imm Gran Pct Auto 0.5 H 0. 0-0.4 - % ?Lymphocytes Percent Auto 27.2 20-40 - % ?Monocytes Percent Auto 8.8 2-11 - % ?Eosinophils Percent Auto 4.2 H 0-4 - % ?Basophils Percent Auto 0.9 0-2 - % ?NRBC Pct Auto 0.0 0.0-0. 2 - /100WBC ?Neutrophils Absolute Auto 4.8 2.0-8.3 - x10*3/uL ?Imm Gran Abs Auto 0.04 H 0. 00-0.03 - X10*3/uL ?Lymphocytes Absolute Auto 2.2 1.2-4.9 - X10*3/uL ?Monocytes Absolute Auto 0.7 0.1-1.2 - X10*3/uL ?Eosinophils Absolute Auto 0.3 0.0-0.4 - X10*3/uL ?Basophils Absolute Auto 0.1 0.0-0.2 - X10*3/uL ?NRBC Abs Auto 0.000 0.0-0. 012 - X10*3/uL ???Lab:Comprehensive [place]. P elyssa Fast (Order Date - 05/12/2024) (Collection Date - 05/12/2024) ? Value Reference Range ?Sodium 139 135-145 - mmo l/L ?Bilirubin Total 0.6 0.0- 1.0 - mg/dL ?Aspartate Amino Transferase 20 5-37 - U/L ?Alanine Aminotransferase 15 0-40 - U/L ?Total Protein 7.1 6.5-8. 0 - g/dL ?Albumin Level 4.1 3.5-5. 0 - g/dL ?Alkaline Phosphatase 46 39-117 - U/L ?Potassium 4.3 3.3-5.1 - mmol/L ?Chloride 106 96-108 - mm ol/L ?Carbon Dioxide 27 22-29 - mmol/L ?Anion Gap 10 L 12-20 - ?Blood Urea Nitrogen 19 H 9-16 - mg/dL ?Creatinine 1.11 0.5-1.4 - mg/dL ?Estimated Glomerular Filt Rate > 60 - ?Glucose Fasting 165 H 60-9 9 - mg/dL ?Calcium 9.2 8.4-10.2 - m g/dL ???Lab:Lipid Panel (Order Da te - 05/12/2024) (Collection Date - 05/12/2024) ? Value Reference Range ?Triglycerides 71 <150 - mg/dL ?Cholesterol 116 <200 - m g/dL ?LDL Cholesterol Calculated 60 <100 - mg/dL ?HDL Cholesterol 42 >40 - mg/dL ???Lab:PSA,Total (Free>4and< 10) (Order Date - 05/12/2024) (Collection Date - 05/12/2024) ? Value Reference Range ?PSA,Total (Free>4and<10) 5.10 H 0.00-4.00 - ng/mL ???Lab:Hemoglobin A1c (Order Date - 05/12/2024) (Collection Date - 05/12/2024) ? Value Reference Range ?Hemoglobin A1c % 6.9 H <6. 0 - % ?Estimated Average Glucose 151 - mg/dL * Examination: ???General Examination: ?GENERAL APPEARANCE:?well developed, well nourished, in no acute distress.?HEAD:?normocephalic, atraumatic.?EYES:?pupils equal, round, reactive to light and accommodation, sclera non-icteric.?EARS:?normal.?ORAL CAVITY:?mucosa moist.?THROAT:?clear.?NECK/THYROID:?neck supple, full range of motion, no cervical lymphadenopathy, no bruits.?SKIN:?warm and dry, no suspicious lesions.?HEART:?regular rate and rhythm, S1, S2 normal, no murmurs.?LUNGS:?clear to auscultation bilaterally.?ABDOMEN:?soft, nontender, nondistended, bowel sounds present, normal, no organomegaly , no masses palpable.?RECTAL EXAM:?normal tone, no external hemorrhoids, no masses palpable, prostate normal, stool guaiac negative.?MALE GENITOURINARY:?not examined.?EXTREMITIES:?no clubbing, cyanosis, or edema.?NEUROLOGIC:?nonfocal, motor strength normal upper and lower extremities, sensory exam intact.? 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 Mild intermittent asthma without complication - J45.20?7.?Atherosclerosis of abdominal aorta - I70.0?8.?Colon cancer screening - Z12.11?9.?Depression screening - Z13.31? Plan: * Treatment: 2.?Cancer of lip? Notes: had surgery last week at [facility]. need notes/ RECORDS REQUESTED FROM [facility]?? 3.?Benign essential hyperten fausto? Continue Lisinopril-hydroCHLOROthiazide Tablet, 20-12.5 MG, TAKE 1 TABLET BY MOUTH EVERY DAY FOR 30 DAYS.?? Notes: stable, will continue current regiment?? 4.?Elevated PSA? Notes: is stable had been up to 17 is followed by [facility]?? 5.?Type 2 diabetes mellitus treated without insulin? Notes: stable, will continue to monitor, no need for medication at this time?? 6.?Mild intermittent asthma without complication? Continue Albuterol Sulfate HFA Aerosol Solution, 108 (90 Base) MCG/ACT, INHALE 1 PUFF INTO THE LUNGS EVERY 4 HOURS NEEDED.?? Notes: stable, will continue current regiment?? 7.?Atherosclerosis of abdomi nal aorta? Continue Atorvastatin Calcium Tablet, 20 MG, TAKE 1 TABLET BY MOUTH EVERY DAY.?? Notes: stable, will continue current regiment?? 8.?Colon cancer screening?LAB: Occult Blood, Stool, Guaiac?Negative ? Value Reference Range ?Occult Blood, Stool, Guaiac Neg Notes: guaiac negative??9.?Depression screening? Notes: negative screen?? * Procedure Codes:?51478 TEST FOR BLOOD, FECES * Follow Up:?6 Months * * Sign off status: Completed true * Provider:?Mauricio Zazueta MD Date:?1 07/19/2023 Generated for Zenobia mendez/Jase/eTransmitting on:?11/14/2024 12:33 PM EDT History and Physical Notes * HPI (History of Present Illness) Category Sub-Category Detail Notes Category Not es Symptom(s) patient is a 84 yo male here for annual visit with review of recent labs and follow up of chronic issues, had surgery on lip for cancer last week Depression Screening PHQ-9 Little inte rest or pleasure in doing things: Not at all Feeling down, depressed, or hopeless: No t at all Trouble falling or staying asleep, or sl eeping too much: Not at all Feeling tired or having little energy: N ot at all Poor appetite or overeating: Not at all Feeling bad about yourself o r that you are a failure, or have let yourself or your family down: Not at all Trouble concentrating on thi ngs, such as reading the newspaper or watching television: Not at all Moving or speaking so slowly that other people could have noticed; or the opposite, being so fidgety or restless that you have been moving around a lot more than usual: Not at all Thoughts that you would be b ayo off or of hurting yourself in some way: Not at all Total Score: 0 Interpretation and Intervention Depression Lisset frazier Findings: Negative Follow-Up for Depression: : review of PH Q-9 found negative result, no follow-up needed SDOH Questions SDOH Questions In the past year have you been worried about losing housing?: No In the past year have you or any family members you live with been unable to get any of the following when it was really needed? Check all that apply:: None Fall Risk History Have you had any falls with injury i n the past year?: No Have you had two or more falls in the year?: No Communication Needs Communication Needs Does the patient have a hearing impairment: Yes ?If yes, what is the hearing impairment? : Hard of hearing, Hearing Aids Does the patient have a vision impairmen t?: Yes ?If yes, what is the vision impairment?: Glasses Does the patient have a cognition impair ment?: No Examination Category Sub-Category Detail Notes Category Not es General Examination GENERAL APPEARANCE: well dev eloped, well nourished, in no acute distress HEAD: normocephalic, atrau matic EYES: pupils equal, round, reactive to light and accommodation, sclera non- icteric EARS: normal THROAT: clear NECK/THYROID: neck supple, full ra nge of motion, no cervical lymphadenopathy, no bruits HEART: regular rate and rhy thm, S1, S2 normal, no murmurs LUNGS: clear to auscultatio n bilaterally ABDOMEN: soft, nontender, non distended, bowel sounds present, normal, no organomegaly , no masses palpable NEUROLOGIC: nonfocal, motor stre ngth normal upper and lower extremities, sensory exam intact SKIN: warm and dry, no mery picious lesions EXTREMITIES: no clubbing, cyanosi s, or edema MALE GENITOURINARY: not examined RECTAL EXAM: normal tone, no exte rnal hemorrhoids, no masses palpable, prostate normal, stool guaiac negative ORAL CAVITY: mucosa moist
--- OUTSIDE RECORDS SUMMARY | 2024-11-14 12:33 | XMS_ITS ---
Author Organization Mauricio Zazueta MD Address [address] [place] [phone] Care Team Providers Care Getterer Name Role Phone Mauricio Zazueta Primary Care Provider REASON FOR VISIT FASTING LIPIDS Encounters Encounter Location Date Provider Diagnosis Mauricio Zazueta MD [address] [place] [address] [place] [phone] 11/14/2024 Mauricio Zazueta Type 2 diabetes mellitus treated without insulin E11.9 and Atherosclerosis of abdominal aorta I70.0 Assessments Encounter Date Diagnosis (ICD Code) Assessment Notes Treatment Notes Treatment Clinical Notes Section Notes 11/14/2024 Type 2 diabetes mellitus treated without insulin (ICD-10 - E11.9) 11/14/2024 Atherosclerosis of abdominal aorta (ICD-10 - I70.0) Plan Of Treatment Pending Test Test Name Order Date Liver Panel 11/14/2024 Glucose Fasting 11/14/2024 Lipid Panel with Reflex 11/14/2024 Hemoglobin A1c 11/14/2024 Next Appt Details Provider Name:Mauricio shannon, 11/21/2024 09:00:00 AM, [address] [place] [address], Suite [facility] [place], [place], [phone], Provider Name:Mauricio shannon, 05/15/2025 08:00:00 AM, [address] [place] [address], Suite [facility] [place], [place], [phone], Provider Name:Mauricio shannon, 05/22/2025 10:30:00 AM, [address] [place] [address], [address], [place], [phone], Progress Notes * Joe REECE ADOB:1939 (84 yo M)Acc No.[id number]:11/14/2024 Progress Note Patient:?Joe REECE Provider:?Mauricio Zazueta MD :1940???Age:84 Y???Sex:Male Fratnz e:11/14/2024 Address:[address] [place] [address] [facility] [id number] Subjective: * Chief Complaints: * ???1. FASTING LIPIDS. * Medical History:? Objective: * Vitals:? Assessment: * Assessment: 1.?Type 2 diabetes mellitus treated without insulin - E11.9 (Primary)???2.?Atherosclerosis of abdominal aorta - I70.0??? Plan: * Treatment: 2.?Atherosclerosis of abdomi nal aorta?LAB: Liver Panel ?LAB: Glucose Fasting ?LAB: Lipid Panel with Reflex ?LAB: Hemoglobin A1c * Procedure Codes:?48478 VENIP UNCT, ROUTINE* * * The named appointment provid er may or may not be the originator of this progress note, and it is not deemed complete until electronically signed by the appointment provider. Sign off status: Pending * Provider:?Mauricio Zazueta MD Date:?0 11/14/2024 Generated for Zenobia mendez/Jase/eTransmitting on:?11/14/2024 12:33 PM EDT
--- OUTSIDE RECORDS SUMMARY | 2024-11-14 12:33 | XMS_ITS | Clinical Summary ---
Author Organization [facility] Address [address] [place] [address] Care Team Providers Care Analysis Manager Name Role Phone Mauricio Zazueta MD Primary Care Provider Social History Tobacco Use Types Packs/Day Years Used Date Smoking Tobacco: Never Assessed Sex and Gender Information Value Date Recorded Sex Assigned at Not on file Legal Sex Male 11:03 AM EST Gender Identity Not on file Sexual Orientation Not on file Plan of Treatment Health Maintenance Due Date Last Done Comments DTaP/Tdap/Td Vaccines (1 - Tdap) 02/20/1960 Pneumococcal Vaccines 50+ (1 of 1 - PCV) 1991 Zoster (Shingles) Vaccine (1 of 2) 1991 RSV Vaccine 60 years and old er and Patients (1 - 1-dose 75+ series) 02/20/2016 COVID-19 Vaccine ( - 2023-2 5 season) 2024 Influenza Vaccine 02/03/2025 Hepatitis B Vaccines Aged Out No long er eligible based on patient's age to complete this topic Insurance [facility] MEDICARE Care Teams Analysis Manager Relationship Specialty Start Date End Date Mauricio Zazueta MD [address] [place] [address] Dr Desouza, [place] [address] PCP - General Internal Medicine 08/01/20
--- OUTSIDE RECORDS SUMMARY | 2024-11-14 12:34 | XMS_ITS ---
Author Organization Mauricio Zazueta MD Address [address] [place] [id number] Care Team Providers Care Mill Order Scheduler Name Role Phone Mauricio Zazueta Primary Care Provider Results Component Value Reference Range Notes Complete Blood Count Auto Di ff Reviewed date:05/12/2024 12:27:05 PM Interpretation: Performing Lab:[facility], [address] [place] [phone] Notes/Report: White Blood Count 8.2 4.8-10.8 X10*3/uL Red Blood Count 4.75 4.60-5.80 X10*6/uL Hemoglobin 14.7 14.0-18.0 g/dl Hematocrit 44.2 42.0-52.0 % Mean Corpuscular Volume 93.1 80.0-98.0 fL Mean Corpuscular Hemoglobin 30.9 27.0-33.0 pg Mean Corpuscular HGB Conc 33.3 31.0-36.0 g/dl Red Cell Distribution Width 13.5 11.0-16.0 % Platelet Count 482 160-400 X10*3/uL Mean Platelet Volume 9.1 9.4-12.4 fL Neutrophils Percent Auto 58.4 45-73 % Imm Gran Pct Auto 0.5 0.0-0.4 % Lymphocytes Percent Auto 27.2 20-40 % Monocytes Percent Auto 8.8 2-11 % Eosinophils Percent Auto 4.2 0-4 % Basophils Percent Auto 0.9 0-2 % NRBC Pct Auto 0.0 0.0-0.2 /100WBC Neutrophils Absolute Auto 4.8 2.0-8.3 x10*3/u L Imm Gran Abs Auto 0.04 0.00-0.03 X10*3/uL Lymphocytes Absolute Auto 2.2 1.2-4.9 X10*3/u L Monocytes Absolute Auto 0.7 0.1-1.2 X10*3/uL Eosinophils Absolute Auto 0.3 0.0-0.4 X10*3/u L Basophils Absolute Auto 0.1 0.0-0.2 X10*3/uL NRBC Abs Auto 0.000 0.0-0.012 X10*3/uL Comprehensive [place]. Panel Fa st Reviewed date:05/12/2024 01:29:14 PM Interpretation: Performing Lab:[facility], [address] [place] [phone] Notes/Report: Sodium 139 135-145 mmol/L Potassium 4.3 3.3-5.1 mmol/L Chloride 106 96-108 mmol/L Carbon Dioxide 27 22-29 mmol/L Anion Gap 10 12-20 Blood Urea Nitrogen 19 9-16 mg/dL Creatinine 1.11 0.5-1.4 mg/dL Estimated Glomerular Filt Rate > 60 NOTE: For -Macedonian individuals, multiply the result by 1.210. Chronic Kidney Disease: Estimated GFR < 60 mL/min/1.73m2 Severe Kidney Disease: Estimated GFR < 15 mL/min/1.73m2 Glucose Fasting 165 60-99 mg/dL A fasting glucose of 126 mg/dl or greater on more than one occasion is considered diagnostic of diabetes. Calcium 9.2 8.4-10.2 mg/dL Bilirubin Total 0.6 0.0-1.0 mg/dL Aspartate Amino Transferase 20 5-37 U/L Alanine Aminotransferase 15 0-40 U/L Total Protein 7.1 6.5-8.0 g/dL Albumin Level 4.1 3.5-5.0 g/dL Alkaline Phosphatase 46 39-117 U/L Lipid Panel Reviewed date:05/12/2024 12:42:11 PM Interpretation: Performing Lab:[facility], [address] [place] [phone] Notes/Report: Triglycerides 71 <150 mg/dL Desirable Triglyceride: less than 150 mg/dL Borderline High Triglyceride 150-199 mg/dL High Triglyceride: 200-499 mg/dL Very High Triglyceride: greater than or equal to 5OO mg/dL Cholesterol 116 <200 mg/dL Desirable Cholesterol: less than 200 mg/dL Borderline High Cholesterol: 200-239 mg/dL High Cholesterol: greater than 239 mg/dL LDL Cholesterol Calculated 60 <100 mg/dL Desirable LDL: less than 100 mg/dL Near Optimal/Above Optimal LDL: 110-129 mg/dL Borderline High LDL: 130-159 mg/dL High LDL: 160-189 mg/dL Very High LDL: greater than or equal to 190 mg/dL HDL Cholesterol 42 >40 mg/dL Desirable HDL: greater than 40 mg/dL Note: This HDL assay may give artificially low results in patients with liver disease. PSA,Total (Free>4and<10) Reviewed date:05/12/2024 01:28:57 PM Interpretation: Performing Lab:[facility], [address] [place] [phone] Notes/Report: PSA,Total (Free>4and<10) 5.10 0.00-4.00 ng/mL PSA methodology: Lees Alinity i Chemiluminescent Microparticle Immunoassay (CMIA) Microalbumin, Random Reviewed date:05/12/2024 04:43:35 PM Interpretation: Performing Lab:[facility], [address] [place] [phone] Notes/Report: Creatinine Urine 84.07 Microalbumin Urine 11.0 Microalbum/Creatinine Ratio Ur 13.0 <30 ug/mg cr Albumin/Creatinine Ratio Reference Ranges: Normal: < 30 ug/mg creatinine Microalbuminuria: 30 - 300 ug/mg creatinine Clinical Albuminuria: > 300 ug/mg creatinine Hemoglobin A1c Reviewed date:05/12/2024 12:26:39 PM Interpretation: Performing Lab:[facility], [address] [place] [phone] Notes/Report: Hemoglobin A1c % 6.9 <6.0 % Hemoglobin A1C Reference Range Adults: 4.8 - 6.0 % Non diabetic: < 6.0 % Goal: < 7.0 % Additional Action Suggested: > 8.0 % Note: Hemoglobin A1c results are invalid for patients with abnormal amounts of HbF. Blood transfusions may impact the HbA1c concentration in the patient sample. Estimated Average Glucose 151 eAG = Estimated average glucose which is %A1C expressed as average glucose, using the formula of the Q9J-Owtjjhc Average Glucose study (ADAG), Diabetes Care, Vol.31,#8, Feb. 2007 UA ClnCatch+Micro w/rflx Cul t Reviewed date:05/12/2024 12:27:44 PM Interpretation: Performing Lab:[facility], [address] [place] [phone] Notes/Report: Urine, Clean Catch Color Urine Yellow Appearance Urine Clear PH 5.5 5.0-9.0 Glucose Urine UA Negative Negative mg/dL Urine Blood Negative Negative Specific [place] - Urine 1.015 1.005-1.025 Urine Protein Negative Neg-Trace mg/dL Urine Ketones Negative Negative mg/dL Nitrite Urine Negative Negative Leukocyte Esterase Urine Trace Negative RBC Urine 0-2 0-2 /HPF WBC Urine 0-5 0-5 /HPF Squamous Epithelial Cell Urine 0-2 0-2 /HPF Bacteria Urine None Seen None Seen Hyaline Casts Urine 0-2 0-2 /LPF REASON FOR VISIT yearly fasting labs Encounters Encounter Location Date Provider Diagnosis Mauricio Zazueta MD [address] [place] [address] Drive [address] [place], [place] [phone] 05/12/2024 Mauricio Zazueta Blood tests for routine general physical examination Z00.00 ; Benign essential hypertension I10 ; Anemia, unspecified D64.9 ; Elevated PSA R97.20 and Type 2 diabetes mellitus treated without insulin E11.9 Assessments Encounter Date Diagnosis (ICD Code) Assessment Notes Treatment Notes Treatment Clinical Notes Section Notes 05/12/2024 Blood tests for routine general physical examination (ICD-10 - Z00.00) 05/12/2024 Benign essential hypertension (ICD-10 - I10) 05/12/2024 Anemia, unspecified (ICD-10 - D64.9) 05/12/2024 Elevated PSA (ICD-10 - R97.20) 05/12/2024 Type 2 diabetes mellitus treated without insulin (ICD-10 - E11.9) Plan Of Treatment Next Appt Details Provider Name:Mauricio shannon, 11/21/2024 09:00:00 AM, [address] [place] [address], [address], [place], [place], [phone], Provider Name:Mauricio shannon, 05/15/2025 08:00:00 AM, [address], [address], [place], [phone], Provider Name:Mauricio Burgess ier, 05/22/2025 10:30:00 AM, [address], [address], [place], [phone], Progress Notes * ROSENDOJoe HSU ADOB:1939 (84 yo M)Acc No.[id number]:05/12/2024 Progress Note Patient:?Joe REECE A Provider:?Mauricio Zazueta MD :1940???Age:84 Y???Sex:Male Frantz e:05/12/2024 Address:[address] [place], [place] [phone] Subjective: * Chief Complaints: * ???1. Yearly fasting labs. * Medical History:? Objective: * Vitals:? Assessment: * Assessment: 1.?Blood tests for routine g eneral physical examination - Z00.00 (Primary)???2.?Benign essential hypertension - I10???3.?Anemia, unspecified - D64.9???4.?Elevated PSA - R97.20???5.?Type 2 diabetes mellitus treated without insulin - E11.9??? Plan: * Treatment: 2.?Benign essential hyperten fausto?LAB: Complete Blood Count Auto Diff (Collection Date & Time - 05/12/2024 08:00 AM) ?LAB: Comprehensive [place]. Panel Fast (Collection Date & Time - 05/12/2024 08:00 AM) ?LAB: Lipid Panel (Collection Date & Time - 05/12/2024 08:00 AM) ?LAB: PSA,Total (Free>4and<10) (Collection Date & Time - 05/12/2024 08:00 AM) ?LAB: Microalbumin, Random (Collection Date & Time - 05/12/2024 08:00 AM) ?LAB: Hemoglobin A1c (Collection Date & Time - 05/12/2024 08:00 AM) ?LAB: UA ClnCatch+Micro w/rflx Cult (Collection Date & Time - 05/12/2024 08:00 AM) 3.?Anemia, unspecified?LAB: Complete Blood Count Auto Diff (Collection Date & Time - 05/12/2024 08:00 AM) ?LAB: Comprehensive [place]. Panel Fast (Collection Date & Time - 05/12/2024 08:00 AM) ?LAB: Lipid Panel (Collection Date & Time - 05/12/2024 08:00 AM) ?LAB: PSA,Total (Free>4and<10) (Collection Date & Time - 05/12/2024 08:00 AM) ?LAB: Microalbumin, Random (Collection Date & Time - 05/12/2024 08:00 AM) ?LAB: Hemoglobin A1c (Collection Date & Time 05/12/2024 08:00 AM) ?LAB: UA ClnCatch+Micro w/rflx Cult (Collection Date & Time - 05/12/2024 08:00 AM) 4.?Elevated PSA?LAB: Complete Blood Count Auto Diff (Collection Date & Time - 05/12/2024 08:00 AM) ?LAB: Comprehensive [place]. Panel Fast (Collection Date & Time - 05/12/2024 08:00 AM) ?LAB: Lipid Panel (Collection Date & Time 05/12/2024 08:00 AM) ?LAB: PSA,Total (Free>4and<10) (Collection Date & Time - 05/12/2024 08:00 AM) ?LAB: Microalbumin, Random (Collection Date & Time 05/12/2024 08:00 AM) ?LAB: Hemoglobin A1c (Collection Date & Time - 05/12/2024 08:00 AM) ?LAB: UA ClnCatch+Micro w/rflx Cult (Collection Date & Time - 05/12/2024 08:00 AM) 5.?Type 2 diabetes mellitus treated without insulin?LAB: Complete Blood Count Auto Diff (Collection Date & Time - 05/12/2024 08:00 AM) ?LAB: Comprehensive [place]. Panel Fast (Collection Date & Time - 05/12/2024 08:00 AM) ?LAB: Lipid Panel (Collection Date & Time - 05/12/2024 08:00 AM) ?LAB: PSA,Total (Free>4and<10) (Collection Date & Time - 05/12/2024 08:00 AM) ?LAB: Microalbumin, Random (Collection Date & Time - 05/12/2024 08:00 AM) ?LAB: Hemoglobin A1c (Collection Date & Time - 05/12/2024 08:00 AM) ?LAB: UA ClnCatch+Micro w/rflx Cult (Collection Date & Time - 05/12/2024 08:00 AM) * Procedure Codes:?77313 VENIP UNCT, ROUTINE* * * The named appointment provid er may or may not be the originator of this progress note, and it is not deemed complete until electronically signed by the appointment provider. Sign off status: Pending * Provider:?Mauricio Zazueta MD Date:?1 07/12/2023 Generated for Zenobia mendez/Jase/Chelleitting on:?11/14/2024 12:34 PM EDT
--- OUTSIDE RECORDS SUMMARY | 2024-11-14 12:34 | XMS_ITS | Patient Health Record ---
Author Organization Mauricio Zazueta MD Address [address] [place], [place] [id number] Care Team Providers Care Senior Programmer Name Role Phone Mauricio Zazueta Primary Care Provider Allergies No Known Allergies Results Component Value Reference Range Notes Hemoglobin A1c Reviewed date:02/16/2024 10:06:13 AM Interpretation: Performing Lab: Notes/Report: Hemoglobin A1c 6.8 Complete Blood Count Auto Di ff Reviewed date:05/12/2024 12:27:05 PM Interpretation: Performing Lab:[facility], [address] [place] [phone] Notes/Report: White Blood Count 8.2 4.8-10.8 X10*3/uL [...] NRBC Abs Auto 0.000 0.0-0.012 X10*3/uL Comprehensive [place]. Panel Fa st Reviewed date:05/12/2024 01:29:14 PM Interpretation: Performing Lab:[address] [phone] Notes/Report: Sodium 139 135-145 mmol/L Potassium 4.3 3.3-5.1 mmol/L Chloride 106 96-108 mmol/L Carbon Dioxide 27 22-29 mmol/L Anion Gap 10 12-20 Blood Urea Nitrogen 19 9-16 mg/dL Creatinine 1.11 0.5-1.4 mg/dL Estimated Glomerular Filt Rate > 60 NOTE: For -Bruneian individuals, multiply the result by 1.210. Chronic [...] Panel Reviewed date:05/12/2024 12:42:11 PM Interpretation: Performing Lab:[facility], [address] [place] [phone] Notes/Report: Triglycerides 71 <150 mg/dL Desirable Triglyceride: [...] (Free>4and<10) Reviewed date:05/12/2024 01:28:57 PM Interpretation: Performing Lab:[facility], [address] [place] [phone] Notes/Report: PSA,Total (Free>4and<10) 5.10 0.00-4.00 ng/mL PSA methodology: Lees Alinity i Chemiluminescent Microparticle Immunoassay (CMIA) Microalbumin, Random Reviewed date:05/12/2024 04:43:35 PM Interpretation: Performing Lab:[facility], [address] [place] [phone] Notes/Report: Creatinine Urine 84.07 Microalbumin Urine 11.0 Microalbum/Creatinine Ratio Ur 13.0 <30 ug/mg cr Albumin/Creatinine Ratio Reference Ranges: Normal: < 30 ug/mg creatinine Microalbuminuria: 30 - 300 ug/mg creatinine Clinical Albuminuria: > 300 ug/mg creatinine Hemoglobin A1c Reviewed date:05/12/2024 12:26:39 PM Interpretation: Performing Lab:[facility], [address] [place] [phone] Notes/Report: Hemoglobin A1c % 6.9 <6.0 % [...] average glucose, using the formula of the H5T-Fglptkw Average Glucose study (ADAG), Diabetes Care, Vol.31,#8, 2007 UA ClnCatch+Micro w/rflx Cul t Reviewed date:05/12/2024 12:27:44 PM Interpretation: Performing Lab:[facility], [address] [place] [phone] Notes/Report: Urine, Clean Catch Color Urine Yellow Appearance Urine Clear PH 5.5 5.0-9.0 Glucose Urine UA Negative Negative mg/dL Urine Blood Negative Negative Specific [place] - Urine 1.015 1.005-1.025 Urine Protein Negative Neg-Trace mg/dL Urine Ketones Negative Negative mg/dL Nitrite Urine Negative Negative Leukocyte Esterase Urine Trace Negative RBC Urine 0-2 0-2 /HPF WBC Urine 0-5 0-5 /HPF Squamous Epithelial Cell Urine 0-2 0-2 /HPF Bacteria Urine None Seen None Seen Hyaline Casts Urine 0-2 0-2 /LPF Glucose, finger stick Reviewed date:02/16/2024 09:59:18 AM Interpretation: Performing Lab: Notes/Report: Value 207 Occult Blood, Stool, Guaiac Reviewed date:05/19/2024 01:54:49 PM Interpretation:Negative Performing Lab: Notes/Report: Negative Occult Blood, Stool, Guaiac Neg PSA Free and Total Reviewed date:05/13/2024 01:01:12 PM Interpretation: Performing Lab:[facility], [address] [place] [phone] Notes/Report: Prostate Specific Ag Total 5.0 < OR = 4.0 ng/ mL Percent Free Prostate Spec Ag 32 >25 % (calc ) PSA(ng/mL) Free PSA(%) Estimated(x) Probability of Cancer(as%) 0-2.5 (*) Approx. 1 2.6-4.0(1) 0-27(2) 24(3) 4.1-10(4) 0-10 56 11-15 28 16-20 20 21-25 16 >or =26 8 >10(+) N/A >50 References:(1)Agustin et al.:Urology 60: 469-474 (2002) (2)Catalona et al.:J.Urol 168: 922-925 (2001) Free PSA(%) Sensitivity(%) Specificity(%) < or = 25 85 19 < or = 30 93 9 (3)Catalona et al.:SUE 277: 7876-0525 (1996) (4)Catalona et al.:SUE 279: 4061-9750 (1997) (x)These estimates vary with age, ethnicity, family history and TYRELL results. (*)The diagnostic usefulness of % Free PSA has not been established in patients with total PSA below 2.6 ng/mL (+)In men with PSA above 10 ng/mL, prostate cancer risk is determined by total PSA alone. The Total PSA value from this assay system is standardized against the equimolar PSA standard. The test result will be approximately 20% higher when compared to the WHO-standardized Total PSA (Siemens assay). Comparison of serial PSA results should be interpreted with this fact in mind. PSA was performed using the Jared [place] Immunoassay method. Values obtained from different assay methods cannot be used interchangeably. PSA levels, regardless of value, should not be interpreted as absolute evidence of the presence or absence of disease. THIS TEST WAS PERFORMED AT: [email or web address] [address] [phone] MARGY NICK MD Free Prostate Spec Ag 1.6 Holden Talamantes Reviewed date:11/14/2024 12:26:51 PM Interpretation: Performing Lab:[facility], [address] [place] [phone] Notes/Report: Holden Talamantes See Note Specimen held untested for 24 hours; Call to request Chemistry testing. Reason For Referral Reason skin lesion of face Diagnosis 1 Skin lesion of face (L98.9) Referral Organization Mauricio Zazueta MD Referring Provider First Name Mauricio Referring Provider Last Name Carlita Referring Provider Speciality Internal M edicine Referred Provider Guanaco Salter Referred Provider Specialty Dermatology General Notes Dulce Maria Matias 09:58:14 AM EDT > referral info faxed with letter, sent to joey vasquez to review at [facility] Annette 04/04/2024 02:52:08 PM EDT > was told appt is being worked on Referral Priority Routine Referral Appointment Date 04/06/2024 Medications Medication SIG (Take, Route, Frequency, Duration) Notes Start Date End Date Status Flonase Allergy Relief 50 MCG/ACT 1 spray in each nostril Nasally Once a day Not-Taking Diflucan 150 MG 1 tablet Orally lucy y for 7 days 02/10/2023 Not-Taking Ketoconazole 2 % 1 application Externally Once a day for 30 days 02/10/2023 Active LORazepam 0.5 MG 1 tablet at bedtime as needed Orally Once a day or twice a day for 30 days 08/14/2022 Not-Taking Flonase Allergy Relief 50 MCG/ACT 1 spray in each nostril Nasally Once a day for 30 day(s) Not-Taking Albuterol Sulfate HFA 108 (90 Base) MCG/ACT INHALE 1 PUFF INTO THE LUNGS EVERY 4 HOURS NEEDED Active Atorvastatin Calcium 20 MG TAKE 1 TABLET BY MOUTH EVERY DAY Active Lisinopril-hydroCHLOROthi azide 20-12.5 MG TAKE 1 TABLET BY MOUTH EVERY DAY FOR 30 DAYS Active Immunizations Vaccine Route Administration Date Status Comme nts Flu Vaccine IM Intramuscular 03/04/2011 Administered Flu Vaccine IM Intramuscular 04/13/2012 Administered Prevnar 13 Unknown 06/17/2012 Administered PPSV23 (Pnemovax) Unknown 06/17/2012 Administered Flu Vaccine IM Intramuscular 03/17/2013 Administered Fluarix Quadrivalent IM Intramuscular 03/21/2014 Administe red PPSV23 (Pnemovax) IM Intramuscular 06/23/2014 Administered Fluarix Quadrivalent IM Intramuscular 04/10/2015 Administe red Fluarix Quadrivalent IM Intramuscular 04/07/2016 Administe red Fluarix Quadrivalent IM Intramuscular 03/26/2017 Administe red Fluarix Quadrivalent IM Intramuscular 03/30/2018 Administe red Fluarix Quadrivalent IM Intramuscular 03/29/2019 Administe red PPSV23 (Pnemovax) IM Intramuscular 07/01/2019 Administered Fluarix Quadrivalent IM Intramuscular 03/28/2020 Administe red [facility] TDaP Unknown 09/21/2019 Administered [place] Covid Vaccine Unknown 08/22/2020 Administered Pfizer Covid Vaccine Unknown 09/02/2020 Administered Pfizer SARS-COV-2 Pfizer Unknown 04/03/2021 Administered Influenza High Dose Unknown 04/03/2021 Administered [facility] SARS-COV-2 Pfizer Unknown 10/27/2021 Administered [facility] Influenza High Dose IM Intramuscular 03/17/2022 Administer ed SARS-COV-2 Pfizer Unknown 04/18/2022 Administered Influenza High Dose IM Intramuscular 03/27/2023 Administer ed SARS-COV-2 Pfizer Unknown 04/21/2023 Administered [facility] SARS-COV-2 Pfizer Unknown 10/09/2023 Administered [facility] RSV Unknown 10/09/2023 Administered [facility] Influenza High Dose IM Intramuscular 03/17/2024 Administer ed Shingrix Unknown 12/06/2018 Refused Flu Vaccine Unknown 03/21/2014 Pending Social History Tobacco Use: Social History Observation [...] ast year? No Points 0 Interpretation Negative Problems Problem Type SNOMED Code ICD Code Onset Dates Problem Status W/U Status Risk Notes Problem 438122871 Atherosclerosis of abdominal aorta (I70.0) Active confirmed Problem 19034519 Anxiety (F41.9) Active confirmed Problem 77363212 Anemia, unspecif ied (D64.9) Active confirmed Problem 262560917 Mild intermitten t asthma without complication (J45.20) Active confirmed Problem 8924730 Benign essential hypertension (I10) Active confirmed Problem 054444251 History of hematuria (Z87.448) Active confirmed Problem 882397898 Lung nodules (R91.8) Active confirmed Problem 856850436 Elevated PSA (R97.20) Active confirmed Problem 5401668290537 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 Problem 883575062 BMI 31.0-31.9,ad ult (Z68.31) Active confirmed Problem 979204822 Body mass index (BMI) of 30.0-30.9 in adult (Z68.30) Active confirmed Problem 38320726 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 Problem 989059611 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) Active confirmed Problem 79346341 Type 2 diabetes mellitus treated without insulin (E11.9) Active confirmed Vital Signs Blood pressure diastolic 60 mm Hg 05/19/2024 Height 63.5 in 05/19/2024 Blood pressure systolic 152 mm Hg 05/19/2024 Weight 179 lbs 05/19/2024 BMI 31.21 kg/m2 05/19/2024 Encounters Encounter Location Date Provider Diagnosis Mauricio Zazueta MD [address] [place] [id number] 03/17/2024 Mauricio Zazueta Encounter for immunization Z23 Mauricio Zazueta MD [address] [place] [id number] 05/12/2024 Mauricio Zazueta Blood tests for rout ine general physical examination Z00.00 ; Benign essential hypertension I10 ; Anemia, unspecified D64.9 ; Elevated PSA R97.20 and Type 2 diabetes mellitus treated without insulin E11.9 Mauricio Zazueta MD [address] [id number] 11/14/2024 Mauricio Zazueta Type 2 diabetes mellitus treated without insulin E11.9 and Atherosclerosis of abdominal aorta I70.0 Mauricio Zazueta MD [address] [place] [id number] 02/16/2024 Mauricio Zazueta Prediabetes R73.09 a nd Fungal skin infection B36.9 Mauricio Zazueta MD [address] [place] [id number] 03/31/2024 Mauricio Zazueta Skin lesion of face L98.9 Mauricio Zazueta MD [address] [id number] 05/19/2024 Mauricio Zazueta 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 need notes/ RECORDS REQUESTED FROM [facility] 05/19/2024 Encounter for general adult medical examination without abnormal findings (ICD-10 - Z00.00) Labs reviewed and discussed with patient 05/12/2024 Anemia, unspecified (ICD-10 - D64.9) 11/14/2024 Atherosclerosis of abdominal aorta (ICD-10 - I70.0) 05/19/2024 Benign essential hypertension (ICD-10 - I10) stable, will continue current regiment 05/12/2024 Elevated PSA (ICD-10 - R97.20) 05/19/2024 Elevated PSA (ICD-10 - R97.20) is stable had been up to 17 is followed by [facility] 05/12/2024 Type 2 diabetes mellitus treated without insulin (ICD-10 - E11.9) 05/19/2024 Type 2 diabetes mellitus treated without [...] Depression screening (ICD-10 - Z13.31) negative screen 02/16/2024 Other the lesion on lip appears benign Plan Of Treatment Pending Test Test Name Order Date Electrocardiogram (EKG) 11/26/2017 Electrocardiogram (EKG) 11/14/2016 X ray : LS Spine 04/11/2011 Liver Panel 11/14/2024 Glucose Fasting 11/14/2024 Lipid Panel with Reflex 11/14/2024 Hemoglobin A1c 11/14/2024 Future Test Test Name Order Date CT CHEST NO CONTRAST 03/02/2019 Next Appt Details Provider Name:Mauricio Burgess ier, 11/21/2024 09:00:00 AM, [address], [address], [place], [place], [phone], Provider Name:Mauricio Burgess ier, 05/15/2025 08:00:00 AM, [address], [address], [place], [place], [phone], Provider Name:Mauricio Burgess ier, 05/22/2025 10:30:00 AM, [address], [address], [place], [place], [id number], Insurance Providers Payer Name Payer Address Payer Phone Subscriber Number Group Number Insured Name Patient Relationship to Insured Coverage Start Date Coverage End Date [employer] [address] [place], [place] [id number] Joe Reece Self - patient is the insured Medical (General) History Medical History History ICD Code HEMATURIA WORKUP 2005 colonoscopy 07/15/12 - f/u 5 years; had colonoscopy booked but pt CX due to surgery 04/29/18; colonoscopy done 12/10/18 - Dr. harrison - no further testing prostate biopsy 2012 all normal urologist said unless it goes over 10 no treatment lung nodules followed for 2 years so nel not need any further Prediabetes R73.09 Prediabetes
[2024-11-14 12:48] LABS: Estimated Average Glucose 154 mg/dL; Hemoglobin A1C 194.5518 umol/L; Total Hemoglobin (HGBA1C) 3688.2683 umol/L
[2024-11-14 13:44] LABS: Alanine Aminotransferase 30 U/L (0-40); Albumin Level 4.1 g/dL (3.5-5.0); Aspartate Amino Transferase 51 U/L (5-37); Bilirubin Direct 0.2 mg/dL (0.0-0.5); Bilirubin Total 0.5 mg/dL (0.0-1.0); Cholesterol 110 mg/dL (<200); Glucose Fasting 156 mg/dL (60-99); HDL Cholesterol 41 mg/dL (>40); LDL Cholesterol Calculated 27 mg/dL (<100); Total Protein 6.8 g/dL (6.5-8.0); Triglycerides 212 mg/dL (<150)
[2024-11-14 14:28] LABS: Alkaline Phosphatase 49 U/L (39-117)
[2024-11-14 15:42] LABS: Reflex LDLD? No
== END 2024-11-14 11:53 | disposition home or self-care (01) ==
LOC: HO.LNP 11:52
PROVIDERS: Visit Provider Internal Medicine
DX: E11.9 Type 2 diabetes mellitus without complications (principal); I70.0 Atherosclerosis of aorta
CPT/HCPCS: 80061; 80076; 82947; 83036

== ENCOUNTER 2025-05-15 11:02 | Outpatient (REF) | payer MEDICARE, SELFPAY ==
[2025-05-15 11:05] LABS: MANUAL DIFF FLAG NO
[2025-05-15 11:18] LABS: Hematocrit 40.1 % (42.0-52.0); Hemoglobin 13.2 g/dl (14.0-18.0); Imm Gran Abs Auto 0.03 X10*3/uL (0.00-0.03); Imm Gran Pct Auto 0.4 % (0.0-0.4); Lymphocytes Absolute Auto 2.5 X10*3/uL (1.2-4.9); Mean Corpuscular HGB Conc 32.9 g/dl (31.0-36.0); Mean Corpuscular Hemoglobin 30.9 pg (27.0-33.0); Mean Corpuscular Volume 93.9 fL (80.0-98.0); NRBC Abs Auto 0.000 X10*3/uL (0.0-0.012); NRBC Pct Auto 0.0 /100WBC (0.0-0.2); Platelet Count 483 X10*3/uL (160-400); Red Blood Count 4.27 X10*6/uL (4.60-5.80); White Blood Count 8.1 X10*3/uL (4.8-10.8)
[2025-05-15 11:50] LABS: Alanine Aminotransferase 12 U/L (0-40); Albumin Level 4.5 g/dL (3.5-5.0); Alkaline Phosphatase 52 U/L (39-117); Anion Gap 12 (12-20); Aspartate Amino Transferase 22 U/L (5-37); Blood Urea Nitrogen 22 mg/dL (9-16); Calcium 9.6 mg/dL (8.4-10.2); Carbon Dioxide 26 mmol/L (22-29); Chloride 106 mmol/L (96-108); Cholesterol 115 mg/dL (<200); Estimated Glomerular Filt Rate 58; HDL Cholesterol 33 mg/dL (>40); Potassium 4.4 mmol/L (3.3-5.1); Sodium 140 mmol/L (135-145); Total Protein 7.2 g/dL (6.5-8.0); Triglycerides 107 mg/dL (<150)
[2025-05-15 12:27] LABS: PSA,Total (Free>4and<10) 6.84 ng/mL (0.00-4.00)
--- OUTSIDE RECORDS SUMMARY | 2025-05-15 13:22 | XMS_ITS | Clinical Summary ---
Author Organization [facility] Address [address] [place] [address] Care Team Providers Care Predatory Hunter Name Role Phone Mauricio Zazueta MD Primary Care Provider Social History Tobacco Use Types Packs/Day Years Used Date Smoking Tobacco: Never Assessed Sex and Gender Information Value Date Recorded Sex Assigned at Not on file Legal Sex Male 11:03 AM EST Gender Identity Not on file Sexual Orientation Not on file Plan of Treatment Health Maintenance Due Date Last Done Comments Advance Care Planning 1940 DTaP/Tdap/Td Vaccines (1 - Tdap) 02/20/1960 Pneumococcal Vaccines 50+ (1 of 1 - PCV) 1991 Zoster (Shingles) Vaccine (1 of 2) 1991 RSV Vaccine 50 years and old er and Patients (1 - 1-dose 75+ series) 02/20/2016 Influenza Vaccine 02/03/2025 COVID-19 Vaccine ( - 2023-2 5 season) 2025 Hepatitis B Vaccines Aged Out No long er eligible based on patient's age to complete this topic Insurance [facility] MEDIC[facility] Care Teams Predatory Hunter Relationship Specialty Start Date End Date Mauricio Zazueta MD [address] [place] [address] [place] [id number] PCP - General Internal Medicine 08/01/20
[2025-05-16 12:18] LABS: Free Prostate Spec Ag 2.3 ng/mL; Percent Free Prostate Spec Ag 32 % (calc) (>25)
== END 2025-05-15 11:03 | disposition home or self-care (01) ==
LOC: HO.LNP 11:02
PROVIDERS: Visit Provider Internal Medicine
DX: Z00.00 Encounter for general adult medical examination without abnormal findings (principal); I10 Essential (primary) hypertension; E11.9 Type 2 diabetes mellitus without complications; R97.20 Elevated prostate specific antigen [PSA]; D64.9 Anemia, unspecified; Z12.5 Encounter for screening for malignant neoplasm of prostate
CPT/HCPCS: 80053; 80061; 83036; 84153; 84154; 85025

== ENCOUNTER 2025-05-22 10:30 | Outpatient (REF) | payer MEDICARE, SELFPAY ==
[2025-05-22 12:54] LABS: Microalbum/Creatinine Ratio Ur 17.4 ug/mg cr (<30)
[2025-05-22 13:16] LABS: Appearance Urine Clear; Glucose Urine UA Negative (Negative); PH 5.5 (5.0-9.0); Specific Gravity - Urine 1.015 (1.005-1.025); UMIC TRIGGER UACC YES
[2025-05-22 13:27] LABS: UACC Culture Trigger YES
== END 2025-05-22 10:31 | disposition home or self-care (01) ==
LOC: HO.LNP 10:30
PROVIDERS: Visit Provider Internal Medicine
DX: E11.9 Type 2 diabetes mellitus without complications (principal)
CPT/HCPCS: 81001; 82043; 82570; 87086